=== PATIENT | female | born 1975 | race African-American/Black ===

== ENCOUNTER 2016-10-28 08:06 | Inpatient (IN) ==
[2016-10-27 11:40] LABS: MANUAL DIFF NEEDED? NO; URINE SOURCE VOIDED
[2016-10-27 12:10] LABS: BASO% 0.4 % (0.0-0.8); EOS# 0.06 X1000 (0.0-0.7); EOS% 0.9 % (0.0-10.0); HEMATOCRIT 38.3 % (37.0-47.0); HEMOGLOBIN 12.6 g/dL (12.0-16.0); IMM GRAN# 0.01 X1000 (0.0-0.04); IMM GRAN% 0.1 % (0.0-0.5); LYMPH# 1.96 X1000 (1.2-3.4); LYMPH% 28.4 % (20.5-51.1); MCH 29.9 PG (27-31); MCHC 32.9 g/dL (33-37); MCV 90.8 FL (81-99); MONO# 0.28 X1000 (0.11-0.59); MONO% 4.1 % (1.7-9.3); MPV 11.1 FL (7.4-10.4); NEUT% 66.1 % (42.2-75.2); PLT 247 X1000 (130-400); RBC 4.22 XMIL (4.2-5.4)
[2016-10-27 12:17] LABS: BILIRUBIN URINE NEGATIVE (NEGATIVE); BLOOD URINE 1+ (NEGATIVE); CLARITY CLEAR (CLEAR); COLOR YELLOW; GLUCOSE URINE NEGATIVE (NEGATIVE); LEUKOCYTES URINE 2+ (NEGATIVE); NITRITE URINE NEGATIVE (NEGATIVE); PROTEIN URINE NEGATIVE (NEGATIVE); UROBILINOGEN URINE NORMAL
[2016-10-27 12:38] LABS: URINE CULTURE PL NEEDED? YES; URINE EPITHELIAL CELLS <10 /HPF (<10); URINE WBC <10 /HPF (<10)
[2016-10-28] MEDS ORDERED: KEFZOL 1 GM/D5W 1 GM/50 ML IVPB IV ONE (09:00)
[2016-10-28] MEDS ORDERED: LR 1,000 ML IV SCH (09:00)
--- NOTE | 2016-10-28 09:23 | HISTORY AND PHYSICAL ---
ADMITTING PHYSICIAN: Dr. Vignesh Lr. ADMITTING DIAGNOSES: 1. Dysfunctional uterine bleeding with dysmenorrhea and menorrhagia. 2. Uterine leiomyomata. SUMMARY: Anne Ley is a 41-year-old, 3, para 3, with heavy, painful periods. She had an ultrasound which showed fibroids. This has been a finding over the last several years. After discussing options with the patient, she is wishing to proceed with hysterectomy. She has been on control pills and this has failed to relieve her symptoms. PAST MEDICAL HISTORY: Patient has had vaginal deliveries. She had a laparoscopy in the past for pelvic pain. She has history of hypertension and migraine headaches. Otherwise, past medical history is unremarkable. ALLERGIES: None. CURRENT MEDICATIONS: Include control pills, Toprol, VESIcare, Lyrica and Micardis. PHYSICAL EXAMINATION: GENERAL: Shows a well-developed, well-nourished female. Weight is 187. CARDIOVASCULAR: Regular rate and rhythm without murmurs, rubs, or gallops. PULMONARY: Clear. BREASTS: No masses. ABDOMEN: Tender without rebound, rigidity, or guarding. Bowel sounds are present and normal. PELVIC: Examination shows normal external genitalia. The cervix is grossly free of lesions. Recent Pap smear was read as normal. The uterus is approximately 10 weeks size and nodular. EXTREMITIES: No clubbing, edema or cyanosis. IMPRESSION: 1. Dysfunctional uterine bleeding with dysmenorrhea and menorrhagia. 2. Uterine leiomyomata. PLAN: We will proceed with abdominal hysterectomy. Risks of surgery including pain, bleeding, infection, bowel or bladder injury, and anesthesia complications have been discussed. Alternatives to this operation have also been discussed in detail with the patient. cc: Vignesh Lr MD
[2016-10-28] MEDS ORDERED: PEPCID IV ONE ×2 (09:30→10:15)
[2016-10-28] MEDS ORDERED: SODIUM CHLORIDE 0.9% INJ ONE ×2 (09:30→10:15)
[2016-10-28] MEDS ORDERED: ROBINUL ONE (09:37)
[2016-10-28] MEDS ORDERED: XYLOCAINE-MPF 2% ONE ×2 (09:37→11:47)
[2016-10-28] MEDS ORDERED: NEOSTIGMINE ONE (09:37)
[2016-10-28] MEDS ORDERED: DECADRON ONE (09:37)
[2016-10-28] MEDS ORDERED: TORADOL ONE ×2 (09:37→11:02)
[2016-10-28] MEDS ORDERED: ZOFRAN ONE (09:37)
[2016-10-28] MEDS ORDERED: QUELICIN ONE (09:37)
[2016-10-28] MEDS ORDERED: VERSED ONE (09:38)
[2016-10-28] MEDS ORDERED: FENTANYL ONE (09:38)
[2016-10-28] MEDS ORDERED: DIPRIVAN 1% ONE (09:38)
[2016-10-28] MEDS ORDERED: LR 1,000 ML IV ONE (10:00)
[2016-10-28] MEDS ORDERED: KEFZOL 1 GM/D5W 1 GM/50 ML IVPB ONE (10:18)
[2016-10-28 10:53] LABS: URINE MICROSCOPIC NEEDED? NO; URINE SOURCE CATH
[2016-10-28] MEDS ORDERED: LR 1,000 ML ONE (10:57)
[2016-10-28 11:04] LABS: BILIRUBIN URINE NEGATIVE (NEGATIVE); BLOOD URINE NEGATIVE (NEGATIVE); CLARITY CLEAR (CLEAR); COLOR YELLOW; GLUCOSE URINE NEGATIVE (NEGATIVE); LEUKOCYTES URINE NEGATIVE (NEGATIVE); NITRITE URINE NEGATIVE (NEGATIVE); PROTEIN URINE NEGATIVE (NEGATIVE); SP GRAVITY URINE 1.005; UROBILINOGEN URINE NORMAL
[2016-10-28] MEDS: DILAUDID ONE ×5 (12:05→12:52)
--- NOTE | 2016-10-28 12:26 | OPERATIVE NOTE ---
PROCEDURE DATE: 10/28/2016 SURGEON: Vignesh Lr MD. PRINTED CIRCUIT DESIGNER: Michael. ANESTHESIA: General endotracheal. OPERATION PERFORMED: Transabdominal hysterectomy with bilateral salpingectomy PREOPERATIVE DIAGNOSES: 1. Dysmenorrhea. 2. Menorrhagia. 3. Uterine leiomyomata by ultrasound. POSTOPERATIVE DIAGNOSES: 1. Dysmenorrhea. 2. Menorrhagia. 3. Uterine leiomyomata by ultrasound. FINDINGS: Pelvic anatomy was grossly normal. DESCRIPTION OF PROCEDURE: The patient was taken back to the operating room and after general endotracheal anesthesia, was placed in the supine position. The vagina and abdomen were prepped and draped in the usual fashion. A Duran catheter was placed in the urinary bladder. A Pfannenstiel incision was made. This incision was taken down to the fascia. The fascia was excised transversely. The underlying rectus muscles were bluntly and sharply dissected free. The rectus muscle was in the midline. The peritoneum was entered without difficulty. The Melida self-retaining retractor was placed. The bowel was packed out of the operative field. The fundus of the uterus was grasped with a Jono clamp and elevated out of the pelvis. Beginning on the patient's right side, a salpingectomy was performed using the LigaSure device. We then used the LigaSure device to grasp, cauterized, and excise the round ligament. Continuing with the LigaSure device, the broad ligament was clamped, cauterized, and excised. The same procedure was then repeated on the patient's left side. Using the LigaSure device, we did a salpingectomy. Following this, the round ligament and then broad ligament were clamped, cauterized, and excised. The bladder flap was created. The uterine vessels were then clamped, cauterized, and excised using the LigaSure. We then used straight hysterectomy clamps to clamp, excise, and ligate first the cardinal and then the uterosacral ligaments. Curved hysterectomy clamps were then used to clamp across the cervix. These pedicles were excised and tagged bilaterally. We then sharply dissected the cervix and uterus off the upper vaginal vault. Angle stitches were placed bilaterally. The cuff was then closed using a running Vicryl suture. Several [id number]-nitlu chromic sutures were then used to achieve hemostasis. The pelvic cavity was irrigated with copious amounts of sterile water. Again, complete hemostasis was noted. The ureters could be seen to peristalse bilaterally. All packs and instruments were removed. Initial sponge, instrument, and needle counts were reported as correct. The peritoneum was closed in a standard fashion using chromic suture. The fascia was then closed using running Vicryl sutures x2. Our 3rd and then final sponge, instrument, and needle counts were reported as correct at this time. Then 3-0 Vicryl sutures were used to close the adipose tissue and a 3-0 Monocryl was used to reapproximate the skin edges. At this point, the patient had a bradycardic episode and then arrhythmias. This was treated by anesthesia. At the time of dictation, she is in a sinus rhythm. We will get the hospitalist to evaluate her. She does have a history of cardiac arrhythmias. Blood loss estimated at 100 mL. Patient was extubated and went to the recovery room in stable condition. cc: Vignesh Lr MD
[2016-10-28] MEDS ORDERED: PHENERGAN IM PRN (12:30)
[2016-10-28] MEDS ORDERED: DULCOLAX PR PRN (12:30)
[2016-10-28] MEDS ORDERED: NORCO-5 PO PRN (12:30)
[2016-10-28] MEDS ORDERED: NORCO-10 PO PRN (12:30)
[2016-10-28] MEDS ORDERED: ZOFRAN IV PRN ×2 (12:30→14:39)
[2016-10-28] MEDS ORDERED: AMBIEN PO PRN (12:30)
[2016-10-28] MEDS ORDERED: DEMEROL IM PRN (12:30)
[2016-10-28] MEDS ORDERED: FLEET ENEMA PR PRN (12:30)
[2016-10-28] MEDS ORDERED: ZOFRAN ODT PO PRN (12:30)
[2016-10-28 12:52] LABS: HEMATOCRIT 39.2 % (37.0-47.0); HEMOGLOBIN 13.2 g/dL (12.0-16.0)
[2016-10-28] MEDS ORDERED: LASIX ONE (12:59)
[2016-10-28 13:03] LABS: AGAP 11; BUN 10 mg/dL (8-22); CALCIUM 8.3 mg/dL (8.8-10.2); CHLORIDE 98 mmol/L (98-107); COSMO 270; MAGNESIUM 2.2 mg/dL (1.5-2.7); POTASSIUM 3.3 mmol/L (3.5-5.1); SODIUM 133 mmol/L (136-145); TCO2 23 mmol/L (25-35)
--- NOTE | 2016-10-28 13:07 | Diag Imaging Result Doc PS360 ---
EXAM: CHEST-PORTABLE HISTORY: pink sputum/crackles TECHNIQUE: Portable AP COMPARISON: None. FINDINGS: There are bilateral infiltrates. The heart is borderline mildly prominent. No pleural effusions identified. IMPRESSION: Bilateral infiltrates with mild cardiomegaly. Follow-up PA and lateral recommended. Electronically signed by Yaw Mcdonald 10/28/2016 1:05 PM
[2016-10-28 13:35] LABS: CK-MB 2.71 ng/mL (0.0-5.0)
--- NOTE | 2016-10-28 13:51 | EKG Report ---
Test Performed on : 10/28/2016 12:31:16 PM Test Reason : EKG changes in OR Blood Pressure : / mmHG Vent. Rate : 076 BPM Atrial Rate : 076 BPM P-R Int : 186 ms QRS Dur : 102 ms QT Int : 424 ms P-R-T Axes : 065 070 044 degrees QTc Int : 477 ms Normal sinus rhythm. Possible Left atrial enlargement Borderline ECG When compared with ECG of 28-OCT-2016 08:51, (Unconfirmed) No significant change was found Unconfirmed Result
[2016-10-28] MEDS: MYLICON PO SCH ×3 (14:18→21:05)
[2016-10-28] MEDS ORDERED: PHENERGAN IV PRN (14:39)
[2016-10-28] MEDS ORDERED: DILAUDID PCA VIAL IV PRN (14:39)
[2016-10-28] MEDS ORDERED: NARCAN IV PRN (14:39)
[2016-10-28] MEDS ORDERED: SODIUM CHLORIDE 0.9% INJ PRN (14:39)
[2016-10-28] MEDS: POTASSIUM CHLORIDE 20 MEQ/SWI 20 MEQ/100 ML IVPB IV SCH ×2 (14:51→17:00)
--- NOTE | 2016-10-28 16:09 | CONSULTATION ---
DATE OF CONSULTATION: 10/28/2016 CONSULTING PHYSICIAN: Dr. Vignesh Lr. REASON FOR CONSULT: Bradycardia, arrhythmia. HISTORY OF PRESENT ILLNESS: This is a 41-year-old female with a history of hypertension, uterine fibroids who underwent a transabdominal hysterectomy with bilateral salpingectomy earlier today. During surgery the patient reportedly braided down to 17. She was given atropine, then experienced some dysrhythmia after the atropine for which she was given lidocaine. She then went into sinus rhythm and has remained in sinus rhythm. The patient is post anesthesia at the time of my interview, and she is very sleepy. When questioned she stated that she had 1 episode of tachycardia "just a little bit ago." At home in the recent past that she states she was lying down and she felt her heart rate speed up. She stated that it spontaneously slowed down. She had no accompanying symptoms. She did not get up and try to walk during this episode and when I ask her how long she stated not very long at all. She was unable to tell me of a history of arrhythmias prior to this although she did tell Anesthesia that she did have a history and that she had been put on medication in the past although we are not sure what medication this is. PAST MEDICAL HISTORY: Once again, is hypertension, uterine fibroids, menorrhagia, fibromyalgia, questionable cardiac dysrhythmia. PAST SURGICAL HISTORY: Diagnostic lap, carpal tunnel bilateral and hysterectomy. SOCIAL HISTORY: She drinks 2 alcoholic drinks a week. She denies tobacco or illicit drug use. ALLERGIES: No known drug allergies. HOME MEDICATIONS: Lyrica 100 mg as directed. Micardis 20 mg daily. Toprol-XL 100 daily. Seasonale 1 daily. REVIEW OF SYSTEMS: Really unable to obtain from the patient at present, as she is still sleepy after anesthesia. PHYSICAL EXAMINATION: General: This is a 41-year-old female, who is lying in the bed, sleepy but arousable. Vital Signs: Blood pressure is 105/81 with a heart rate of 81, respirations are 2-. Oxygen saturations are 92-95% on 2 L. She was increased to 3 L and she was running 94-95 consistently. Cardiovascular: Regular rate and rhythm. S1 and S2 appreciated. Pulmonary: Breath sounds are clear with no increased work of breathing noted. Gastrointestinal: Abdomen is soft. It is tender with bowel sounds in all 4 quadrants. These are hypoactive. : Duran is patent to bedside bag with urine clear yellow. Skin : Warm and dry with no rashes or lesions noted. She does have an abdominal dressing that is dry and intact. Extremities: No cyanosis or edema. Pulses are palpable x4. DIAGNOSTICS: WBC is 6.8 with a hemoglobin of 12.6, hematocrit 38.3, and platelets of 247,000. Sodium 133, potassium 3.3, BUN 10, creatinine 0.7 with a glucose of 178. She does have a CPK of 272 with a CK-MB of 2.71 and a troponin of 0.048. Urinalysis is essentially negative. Chest x- ray revealed bilateral infiltrates with mild cardiomegaly. No pleural effusions identified. ASSESSMENT AND PLAN: 1. Bradycardia/arrhythmia. We will place the patient on telemetry. We will get an echocardiogram. We will trend troponins and replete electrolytes and follow. 2. Fluid overload. The patient did receive 1400 of fluids. It is documented that she had pink frothy sputum and was given Lasix 40 at 1 o'clock. We will give another dose of Lasix at 5 and then 40 mg b.i.d. Monitor I and O and respiratory status. 3. Hypokalemia. We will replete and trend labs. 4. Hyponatremia. As stated above we will give IV fluids and trend labs. 5. Hypertension. We will monitor her vital signs and reinstitute her medications as appropriate. We will of course hold her Lopressor at present as she did have a bradycardic episode. 6. For DVT prophylaxis will use SCDs and for GI prophylaxis we will use Prilosec. Further treatments pending hospital course. Dictated by FLACO Villeda for Peng Garcia MD cc: FLACO Villeda MD John A. Shannon, MD pt examined, agree with above, will trend enzymes and pursue echocardiogram to evaluate for any structural heart disease APENOT MTDD
[2016-10-28] MEDS ORDERED: LASIX IV ONE ×2 (17:00→17:15)
[2016-10-28] MEDS: TORADOL IV SCH ×2 (17:29→23:55)
[2016-10-28] MEDS: LEVSIN-SL SL PRN (18:12)
[2016-10-28] MEDS: PERIDEX MT SCH (21:04)
[2016-10-28] MEDS: COLACE PO SCH (21:05)
[2016-10-28] MEDS: LASIX IV SCH (21:05)
[2016-10-28] MEDS: LR 1,000 ML IV SCH ×2 (23:51→23:52)
[2016-10-29] MEDS: LR 1,000 ML IV SCH ×3 (00:58→15:36)
[2016-10-29] MEDS: TORADOL IV SCH ×2 (05:31→11:16)
--- NOTE | 2016-10-29 06:52 | EKG Report ---
Test Performed on : 10/28/2016 7:28:39 PM Test Reason : elevated Troponin Blood Pressure : / mmHG Vent. Rate : 083 BPM Atrial Rate : 083 BPM P-R Int : 184 ms QRS Dur : 096 ms QT Int : 426 ms P-R-T Axes : 046 056 074 degrees QTc Int : 500 ms Normal sinus rhythm. Possible Left atrial enlargement Prolonged QT Abnormal ECG When compared with ECG of 28-OCT-2016 12:31, (Unconfirmed) No significant change was found Confirmed by Regulo Hammond MD ([id number]) on 11/30/2016 6:46:09 PM
[2016-10-29 07:13] LABS: HEMATOCRIT 40.2 % (37.0-47.0); HEMOGLOBIN 13.3 g/dL (12.0-16.0); MCH 29.9 PG (27-31); MCHC 33.1 g/dL (33-37); MCV 90.3 FL (81-99); MPV 11.6 FL (7.4-10.4); RBC 4.45 XMIL (4.2-5.4)
[2016-10-29] MEDS ORDERED: POTASSIUM CHLORIDE 20% LIQUID PO ONE (07:23)
[2016-10-29 07:30] LABS: AGAP 14; ALBUMIN 3.8 g/dL (3.5-5.0); ALKALINE PHOSPHATASE 46 U/L (32-104); BUN 10 mg/dL (8-22); CALCIUM 8.6 mg/dL (8.8-10.2); CHLORIDE 96 mmol/L (98-107); COSMO 272; GOT 46 U/L (10-30); GPT 31 U/L (10-36); POTASSIUM 3.7 mmol/L (3.5-5.1); SODIUM 136 mmol/L (136-145); TCO2 27 mmol/L (25-35); TOTAL PROTEIN 6.6 g/dL (6.3-8.3)
[2016-10-29 07:43] LABS: HDL 61 mg/dL (45-65); LDL 100 mg/dL; TRIGLYCERIDES 69 mg/dL (35-135); VLDL 14 mg/dL
[2016-10-29] MEDS ORDERED: MICARDIS PO SCH (09:00)
[2016-10-29] MEDS ORDERED: TOPROL XL PO SCH (09:00)
[2016-10-29] MEDS: MYLICON PO SCH ×4 (09:37→20:55)
[2016-10-29] MEDS: ASPIRIN PO SCH (09:37)
[2016-10-29] MEDS: LASIX IV SCH (09:37)
[2016-10-29] MEDS: LOVENOX SUBQ SCH (09:37)
[2016-10-29] MEDS: PERIDEX MT SCH ×2 (09:38→20:55)
[2016-10-29] MEDS: COLACE PO SCH ×2 (09:38→20:55)
--- NOTE | 2016-10-29 10:01 | CONSULTATION ---
DATE OF CONSULTATION: 10/29/2016 REQUESTING PHYSICIAN: The Hospitalist Service and Dr. Lr from [employer]. REASON FOR CONSULTATION: The patient developed bradycardia and arrhythmia upon completion of her hysterectomy. Evaluation of cardiac arrhythmia. HISTORY OF PRESENT ILLNESS: Ms. Ley is a pleasant 41-year-old black lady who came in for an elective total abdominal hysterectomy and bilateral salpingectomy under Dr. Lr. The reason for the surgery was dysmenorrhea, menorrhagia, and leiomyoma. The procedure was carried out in the standard fashion and towards the end of the surgery the patient on the monitor manifested bradycardia and she was given at that time atropine 0.4 mg. This was subsequently followed by a run of ventricular tachycardia which in turn was taken care of by the administration of lidocaine. This V-tach lasted 2-3 seconds followed by ventricular bigeminy. After the 100 mg of lidocaine she converted to sinus rhythm. The patient was eventually extubated. An EKG was done at that time and it showed no acute ischemic changes. The first EKG that we have was done at about 8:51 in the morning and it was normal. Subsequent EKG done at 12:31 p.m. showed a sinus rhythm with possible left atrial enlargement. The next EKG was done at 7:28 p.m. and then that EKG showed T wave inversion in the precordial leads 1 and 2 and lead AVL. The latter two are new changes. The repeat EKG today at 6:26 in the morning on 10/29/2016 shows a deeper T wave inversion in leads V1 and V2 and also in lead AVL. The patient has no chest pain at the time of my evaluation. I am seeing her at about 7:00 a.m. on 10/29/2016. She is not in any distress. She just has incisional pain which she says is moderate at about 6/10 in severity. She is not nauseous. She is not feeling any palpitations. PAST MEDICAL HISTORY: Her past history is positive for hypertension for a number of years. She has been under the care of Dr. Petersen in [place]. The patient about 3 years ago was taken to [facility] from work because she was having palpitations. At that time ,she was seen by at the [place] office on 2013 because she had also reported chest pains in addition to palpitations. they did a stress test on 12/12/2013. Dr. Johnson reported that there were 3 PVCs and 1 PAC with aberrancy noted during exercise. She walked on the treadmill for 10 minutes and 45 seconds. The myocardial perfusion images were normal. The ejection fraction on the imaging study was 69%. The patient also received an echocardiogram that same day, 12/12/2013, that showed normal left ventricular systolic function, normal diastolic function , and no significant valvular abnormalities. Pulmonary pressure was estimated between 28 mmHg to 33 mmHg. At any rate, it is noteworthy that on the E.R. visit she had significant hypertension and also significant elevation of CPKs. PAST SURGICAL HISTORY: Her surgical history is positive for previous laser surgery to remove cysts from her ovaries and carpal tunnel surgery. SOCIAL HISTORY: She is single. She has 3 grownup children ages 23, 24, and 26. She is not a smoker. FAMILY HISTORY: Her mother has some arrhythmia and anemia. Her father is healthy. REVIEW OF SYSTEMS: She has had episodes of chest pressure over the course of the past 2 or 3 months lasting 1-2 days, unrelated to exercise. The patient says that she is working at the [employer] in [place] and she has to work nightshifts 2 weeks in a row and that really interferes with her ability to sleep and rest. She is not getting enough rest in her estimation. No other significant positives. Basically she feels healthy for the most part. PHYSICAL EXAMINATION: VITAL SIGNS: Today her blood pressure is 139/91. Pulse is 79. Her temperature was 98 degrees. Respirations are 12. GENERAL: She is awake, alert, oriented, and in no distress. HEENT: Unremarkable. RESPIRATORY: Chest is clear to auscultation and percussion. CARDIOVASCULAR: Heart sounds are regular and rhythmic. No gallop or murmur. GASTROINTESTINAL: Her abdomen is tender in the hypogastric area. Bowel sounds are diminished. EXTREMITIES: The extremities show good pulses. No edema. NEUROLOGICAL: She is follows commands and moves all extremities. LABORATORY DATA: Blood work shows a sodium of 133, potassium 3.3, chloride 98, BUN 10, and creatinine 0.7. Troponin levels have been 0.048, 0.782, and 0.475. Her CPKs have been 272 with an MB fraction of 2.7 and an index of 1% which would be negative. Hemoglobin is 13.3 and platelet count 266,000. IMPRESSION: 1. A patient who developed bradyarrhythmia complicated by a short run of ventricular tachycardia and ventricular bigeminy after the administration of atropine during the end of an abdominal hysterectomy procedure. 2. History of hypertension. 3. History of minor arrhythmia noted on exercise stress test about 3 years ago. 4. Prior history of chest pain with negative stress test about 3 years ago. 5. Status post abdominal hysterectomy postoperative day #1. 6. Abnormal EKG with elevation of troponin level raising concern for possible non-ST elevation myocardial infarction. RECOMMENDATIONS: At this point in time I will request to do a 2D echocardiogram. Follow up cardiac enzymes. We will administer Lovenox subcutaneously. We will get a resting gated myocardial perfusion study. We will not do a stress test yet. Based on these results we will elaborate further on the plan of treatment. Thank you again for the opportunity to participate in her evaluation. cc: MD Vignesh Greenberg MD [facility]
--- NOTE | 2016-10-29 11:03 | ECHO REPORT ---
ORDER DATE: 10/29/2016 INDICATION: Episode of bradycardia occurring during hysterectomy. FINDINGS: 1. The right atrium is normal in size. 2. There is mild tricuspid regurgitation. RV systolic pressure of 37. 3. Poor visualization of the right ventricle overall but likely normal RV systolic function. 4. No significant pulmonic insufficiency. 5. Normal left atrial size at 3.5 cm. 6. No mitral valve prolapse. No significant mitral regurgitation. 7. Normal LV size with an end-diastolic dimension of 4.9. Normal wall thicknesses with a posterior and interventricular septal wall thickness of 0.9 cm each. Normal LV systolic function. Estimated EF of 55% with normal wall motion. 8. Aortic valve opens well. No evidence of stenosis or insufficiency. 9. Aorta appears normal in visualized segments. 10. No pericardial effusion seen. cc: MD Carlos Enrique oDminguez MD John A. Shannon, MD
--- NOTE | 2016-10-29 12:07 | PROGRESS NOTE ---
DATE: 10/29/2016 SUBJECTIVE: The patient has no focal complaint. She looks well. No major issues. OBJECTIVE: Vital signs: Blood pressure 161/97, heart rate of 75, respiratory rate 18, temperature 98 degrees, 100% sat on 3 L. Cardiovascular: Regular rate and rhythm. Pulmonary: Bilateral breath sounds, clear to auscultation. GI: Soft, nontender, nondistended. Bowel sounds were positive. Extremities: No clubbing or cyanosis. Lymphatics: No peripheral edema. Neurological: Exam was nonfocal. LABORATORY DATA: Her troponins had bumped up a little bit, 0.782, with a normal MB fraction, although I do not think we got any more CPKs, it looks like, and then the last one was 0.475. LDL is pretty good at 100. The rest of her electrolytes look okay. PROBLEMS: 1. Troponin leak versus [id number] myocardial infarction. Cardiology has evaluated the patient, recommended aspirin. Waiting echocardiogram, and she is getting a noninvasive perfusion study, so we will continue to monitor. She is getting a resting nuclear imaging today, and we will follow. Continue aspirin. She is on Lovenox. We will continue to follow clinically. Cardiology is managing primarily. At this point, I think we are holding beta- lorraine, although we may need to reinstitute that just because of her ectopy, but we will follow. 2. Hypertension. Continue medications. We may need to make some further adjustments because it does look like she is somewhat hypertensive. She is on Micardis, think probability reinstitute that. She is also on Lasix because she had chest x-ray that showed some interstitial infiltrates, which we will repeat. I think I am going to drop her Lasix rate to just daily, and we will follow accordingly. I appreciate consult. We are following with you. cc: MD Vignesh Walker MD
[2016-10-29 12:19] LABS: CK INDEX 1.9 (0.0-2.5); CK-MB 15.38 ng/mL (0.0-5.0)
[2016-10-29] MEDS ORDERED: D/C PCA XX ONE (14:00)
[2016-10-29] MEDS: MICARDIS PO SCH (14:14)
[2016-10-29] MEDS: LEVSIN-SL SL PRN (14:28)
[2016-10-29] MEDS: TORADOL PO SCH ×2 (14:59→20:54)
--- NOTE | 2016-10-29 17:48 | Diag Imaging Result Document ---
PROCEDURE NAME: MYOCARDIAL PERFU SCAN, REST - 10/29/2016 STUDY: Resting gated myocardial perfusion study. INDICATION: Patient suffered a perioperative arrhythmia with elevation of troponin levels suspicious for non ST elevation myocardial infarction. DESCRIPTION: The patient came into the Nuclear Lab, received a rest injection of technetium 99 sestamibi 30.6 millicuries. Multiple tomographic views of the cardiac structure were obtained at rest. SUMMARY OF MYOCARDIAL PERFUSION PORTION OF STUDY: Resting gated tomographic views of the left ventricle showed a mild mid anteroseptal defect which is relatively focal. The polar plot shows the same finding. There is a focal mid anteroseptal defect of mild severity. The gated SPECT using a 16-bin protocol showed a globally preserved ejection fraction estimated at 61% using the [employer] protocol and 67% using the Myometrix protocol. The study shows no definite wall motion abnormality. The volumes of the ventricle are normal. The lung-heart ratio is normal. IMPRESSION: 1. In summary, this study shows abnormal resting gated myocardial perfusion scan. There is scintigraphic evidence of focal mid anteroseptal defect. This may reflect a tiny area of myocardial infarction. Attenuation artifact is deemed to be less likely. 2. Normal left ventricular systolic function. Ejection fraction is estimated at 51-67% using a 16- bin protocol. No definite wall motion abnormality appears to be present. Clinical correlation is strongly recommended. cc: Carlos Enrique Camarillo MD
[2016-10-29] MEDS ORDERED: TORADOL PO SCH (17:58)
[2016-10-30] MEDS: TORADOL PO SCH ×2 (02:40→10:19)
[2016-10-30] MEDS: LR 1,000 ML IV SCH (05:13)
--- NOTE | 2016-10-30 05:51 | EKG Report ---
Test Performed on : 10/30/2016 05:29:16 AM Test Reason : non ST [place] Blood Pressure : / mmHG Vent. Rate : 072 BPM Atrial Rate : 072 BPM P-R Int : 184 ms QRS Dur : 086 ms QT Int : 460 ms P-R-T Axes : 044 063 089 degrees QTc Int : 503 ms Normal sinus rhythm. Possible Left atrial enlargement Prolonged QT Abnormal ECG When compared with ECG of 28-OCT-2016 19:28, (Unconfirmed) No significant change was found Confirmed by Regulo Hammond MD ([id number]) on 11/30/2016 6:45:36 PM
[2016-10-30 06:19] LABS: HEMATOCRIT 38.8 % (37.0-47.0); HEMOGLOBIN 12.9 g/dL (12.0-16.0); MCH 30.4 PG (27-31); MCHC 33.2 g/dL (33-37); MCV 91.3 FL (81-99); MPV 11.6 FL (7.4-10.4); RBC 4.25 XMIL (4.2-5.4)
[2016-10-30 06:37] LABS: AGAP 9; BUN 10 mg/dL (8-22); CALCIUM 8.1 mg/dL (8.8-10.2); CHLORIDE 104 mmol/L (98-107); COSMO 278; MAGNESIUM 2.4 mg/dL (1.5-2.7); POTASSIUM 3.7 mmol/L (3.5-5.1); SODIUM 140 mmol/L (136-145); TCO2 27 mmol/L (25-35)
[2016-10-30 07:06] LABS: CK INDEX 1.2 (0.0-2.5); CK-MB 5.63 ng/mL (0.0-5.0)
[2016-10-30] MEDS ORDERED: LASIX IV SCH (09:00)
[2016-10-30] MEDS ORDERED: POTASSIUM CHLORIDE 20% LIQUID PO ONE (09:19)
[2016-10-30] MEDS ORDERED: LOPRESSOR PO SCH (09:30)
[2016-10-30] MEDS: LOVENOX SUBQ SCH (10:10)
[2016-10-30] MEDS: MYLICON PO SCH (10:11)
[2016-10-30] MEDS: COLACE PO SCH (10:11)
[2016-10-30] MEDS: ASPIRIN PO SCH (10:11)
[2016-10-30] MEDS: PERIDEX MT SCH (10:18)
[2016-10-30] MEDS: MICARDIS PO SCH (10:19)
--- NOTE | 2016-10-30 14:01 | DISCHARGE SUMMARY ---
ADMISSION DATE: 10/28/2016 DISCHARGE DATE: 10/30/2016 ADMITTING DIAGNOSES: 1. Dysfunctional uterine bleeding with dysmenorrhea and menorrhagia. 2. Uterine leiomyomata by ultrasound. PRINCIPAL DIAGNOSES: 1. Dysfunctional uterine bleeding with dysmenorrhea and menorrhagia. 2. Uterine leiomyomata by ultrasound. 3. Bradycardic episode under anesthesia. PRINCIPAL PROCEDURES: 1. Abdominal hysterectomy with bilateral salpingectomy. 2. Cardiac evaluation and workup. SUMMARY: Anne Ley is a 41-year-old 3, para 3, with heavy painful periods. She had an ultrasound that showed uterine leiomyomata. After discussing the options with the patient she was admitted to the hospital and underwent a total abdominal hysterectomy. We also did a bilateral salpingectomy for ovarian cancer prophylaxis. The ovaries were grossly normal. We had no intraoperative complications until the very end of the surgery where she had a bradycardic episode followed by arrhythmia. She was extubated without difficulty and was evaluated by the hospitalist service and cardiology. She did have elevation of cardiac enzymes and a scan that showed an anterior septal defect on the resting scan. Postoperatively she remained stable and other than the elevated cardiac enzymes her laboratory evaluations were normal. She had an admission hemoglobin and hematocrit of 12.6/38.3 with discharge hemoglobin and hematocrit being 12.9/38.8. The day of discharge cardiac and pulmonary examinations were normal, bowel and bladder function was normal, the incision was clean and dry, and she was having scant vaginal bleeding. DISCHARGE INSTRUCTIONS: In addition to her home medications the ice cream server's have added an aspirin a day and a statin. She will follow up with the ice cream server and she will follow up with me on 11/09/2016. I have given her prescriptions of [place] and Motrin for pain. She is to limit her activity. She is to call if there are any problems. We discussed diet restrictions. We also discussed pelvic rest. She again will call me if there are any concerns or complications, otherwise I will see her in the office in 10 days. cc: Vignesh Lr MD
--- NOTE | 2016-10-30 15:42 | PROGRESS NOTE ---
DATE: 10/30/2016 SUBJECTIVE: The patient has no major complaints. She looks well. No chest pain. OBJECTIVE: Vital signs: Blood pressure 142/93, heart rate 73, respiratory rate 18, temperature 98.1 degrees, 98% on room air. Cardiovascular: Regular rate and rhythm. Pulmonary: Bilateral breath sounds. Clear to auscultation. GI: Soft, nontender, nondistended. Bowel sounds are positive. LABORATORY DATA: White count 10, hemoglobin and hematocrit 12 and 38. CMP was normal. Repeat troponin is normal this morning, 0.009. PROBLEM LIST: 1. Troponin elevation, possibly related to bradycardic episode versus underlying coronary artery disease. In any case, patient clinically has improved. Cardiology was consulted. Echo looked good. Myocardial profusion imaging was abnormal of the mid anteroseptal defect which may be a tiny area of infarction but could be attenuation artifact. There is no wall motion abnormality. Dr. Camarillo evaluated the patient and is okay with her going home and following up with him for ischemic testing as an outpatient. 2. Hypertension. Appears to be controlled. 3. Status post hysterectomy per Dr. Lr. I think the plan will be to discharge her later today. cc: MD Vignesh Walker MD
[2016-10-30 16:09] VITALS: BP 133/95
[2016-10-30] MEDS ORDERED: PRAVACHOL PO SCH (21:00)
== END 2016-10-30 14:00 | disposition home or self-care (01) ==
LOC: P.WC 08:06 → P.ICU 20:12
PROVIDERS: ADMIT Obstetrics & Gynecology; ATTEND Obstetrics & Gynecology